=== PATIENT | female | born 1995 | race Caucasian/White ===

== ENCOUNTER 2017-07-19 09:43 | Inpatient (IN) | payer OTHER ==
[~2017-07-19] VITALS: Ht 160 cm; Wt 68.0 kg
[2017-08-07] MEDS ORDERED: PRENATAL 19 TA1 EACH PO (05:38)
[2017-08-09] MEDS ORDERED: PREPLUS CA-FE1 EACH PO (09:04)
== END 2017-08-09 12:01 | DRG 775 ==
LOC: LDR 08-04 13:00 → OB/GYN 08-07 20:22
PROC: 10D07Z6 Extraction of Products of Conception, Vacuum, Via Natural or Artificial Opening (ICD-10-PCS; principal; 2017-08-07)
PROC: 0W8NXZZ Division of Female Perineum, External Approach (ICD-10-PCS; 2017-08-07)
PROC: 4A1HXCZ Monitoring of Products of Conception, Cardiac Rate, External Approach (ICD-10-PCS; 2017-08-07)
PROC: 4A033R1 Measurement of Arterial Saturation, Peripheral, Percutaneous Approach (ICD-10-PCS; 2017-08-07)
DX: O48.0 Post-term pregnancy (principal); Z3A.40 40 weeks gestation of pregnancy; Z37.0 Single live birth

== ENCOUNTER 2017-07-28 18:57 | Outpatient (CLI) | payer OTHER | END 2017-07-29 09:39 | disposition home or self-care (01) | LOC: OBS/DEL 18:57 | DX: O76 Abnormality in fetal heart rate and rhythm complicating labor and delivery (principal); O47.1 False labor at or after 37 completed weeks of gestation; Z34.03 Encounter for supervision of normal first pregnancy, third trimester ==

== ENCOUNTER 2023-12-18 10:46 | Outpatient (CLI) | payer OTHER ==
[~2023-12-18 10:46] MED LIST: PRENATAL 19 TA1 EACH PO; PREPLUS CA-FE1 EACH PO
== END 2023-12-18 10:47 | disposition home or self-care (01) ==
LOC: PRENATAL 10:46
PROVIDERS: ATTEND Obstetrics & Gynecology Maternal & Fetal Medicine
DX: O36.80X0 Pregnancy with inconclusive fetal viability, not applicable or unspecified (principal); Z36.82 Encounter for antenatal screening for nuchal translucency; Z36.0 Encounter for antenatal screening for chromosomal anomalies

== ENCOUNTER 2024-01-30 08:20 | Outpatient (CLI) | payer OTHER | END 2024-01-30 08:21 | disposition home or self-care (01) | LOC: PRENATAL 08:20 | PROVIDERS: ATTEND Obstetrics & Gynecology Maternal & Fetal Medicine | DX: O35.3XX0 Maternal care for (suspected) damage to fetus from viral disease in mother, not applicable or unspecified (principal); O44.00 Complete placenta previa NOS or without hemorrhage, unspecified trimester; Z3A.19 19 weeks gestation of pregnancy ==

== ENCOUNTER → 2024-03-28 | Emergency (ER) | payer OTHER ==
[~2024-03-28] VITALS: Ht 160 cm; Wt 64.4 kg
[~2024-03-28] MED LIST changes: +AMOX1TAB5 PO; +PEPCID AC20 MG PO
[2024-03-28 14:38] LABS: URINE APPEARANCE Clear; URINE BILIRRUBIN Negative (NEGATIVE); URINE BLOOD Negative; URINE COLOR Yellow; URINE GLUCOSE Negative (NEGATIVE); URINE KETONE 15 (NEGATIVE); URINE LEUKOCYTE Small; URINE NITRATE Negative; URINE PROTEIN Negative (NEGATIVE); URINE UROBILINOGEN 0.2 E.U./dl
[2024-03-28 14:38] LABS: HEMATOCRIT 30.2 % (36.0-45.00); HEMOGLOBIN 10.5 g/dL (12.0-15.00); MEAN CELL VOLUME 94.9 fL (80.00-100.00); MEAN CORPUSCULAR HEMOGLOBIN 32.9 pg (27.00-32.0); MEAN CORPUSCULAR HGB CONC 34.6 g/dl (32.0-36.0); PLATELET COUNT 237 K/uL (150-450); RED BLOOD COUNT 3.18 M/uL (4.00-6.00); RED CELL DISTRIBUTION WIDTH 13.7 % (11.5-14.5)
[2024-03-28 14:42] LABS: URINE BACTERIA 2590.2 uL (0.0-1933); URINE EPITHELIAL CELLS 85.4 uL (0.0-38.8); URINE RBC 2.7 uL (0.0-20.8); URINE WBC 70.1 uL (0.0-23.2)
[2024-03-28 14:57] LABS: URINE CAST 0.61 uL (0.0-1.40)
== END | disposition home or self-care (01) ==
LOC: ER 12:12
PROVIDERS: General Practice
DX: R53.1 Weakness (principal); N39.0 Urinary tract infection, site not specified; R51.9 Headache, unspecified; Z20.822 Contact with and (suspected) exposure to COVID-19

== ENCOUNTER 2024-04-02 10:30 | Outpatient (CLI) | payer OTHER | END 2024-04-02 10:31 | disposition home or self-care (01) | LOC: PRENATAL 10:30 | PROVIDERS: ATTEND Obstetrics & Gynecology Maternal & Fetal Medicine | DX: O26.849 Uterine size-date discrepancy, unspecified trimester (principal); O28.3 Abnormal ultrasonic finding on antenatal screening of mother; Z3A.28 28 weeks gestation of pregnancy ==

== ENCOUNTER 2024-05-13 12:08 | Outpatient (CLI) | payer OTHER | END 2024-05-13 12:09 | disposition home or self-care (01) | LOC: PRENATAL 12:08 | PROVIDERS: ATTEND Obstetrics & Gynecology Maternal & Fetal Medicine | DX: O26.843 Uterine size-date discrepancy, third trimester (principal); O36.8130 Decreased fetal movements, third trimester, not applicable or unspecified; O40.3XX0 Polyhydramnios, third trimester, not applicable or unspecified; O28.3 Abnormal ultrasonic finding on antenatal screening of mother; Z3A.35 35 weeks gestation of pregnancy ==

== ENCOUNTER 2024-06-13 14:00 | Inpatient (IN) | payer OTHER ==
[~2024-06-13] VITALS: Ht 160 cm; Wt 72.1 kg
[2024-06-17] VITALS (11 sets, daily range): BP systolic 90–122; BP diastolic 59–78
[2024-06-17] MEDS ORDERED: DIALYVITE 800-1 EACH PO (01:55)
[2024-06-17] MEDS ORDERED: RINGERS SOLUTION,LACTATED 1,000 ML IV SCH (02:00)
[2024-06-17 02:45] LABS: PH,URINE 6.5 (5.0-8.0); URINE APPEARANCE Clear; URINE BILIRRUBIN Negative (NEGATIVE); URINE BLOOD Negative; URINE COLOR Yellow; URINE KETONE Trace (NEGATIVE); URINE LEUKOCYTE Negative; URINE NITRATE Negative; URINE PROTEIN Trace (NEGATIVE)
[2024-06-17 02:49] LABS: URINE EPITHELIAL CELLS 14.8 uL (0.0-38.8); URINE RBC 3.9 uL (0.0-20.8); URINE WBC 14.6 uL (0.0-23.2)
[2024-06-17 03:13] LABS: URINE CAST 0.14 uL (0.0-1.40); URINE GLUCOSE 250 MG/DL (NEGATIVE)
[2024-06-17 03:20] LABS: HEMATOCRIT 33.2 % (36.0-45.00); INR 0.96; MEAN CORPUSCULAR HGB CONC 34.2 g/dl (32.0-36.0); PARTIAL THROMBOPLASTIN TIME 27.1 SECONDS (22.0-34.0); PLATELET COUNT 211 K/uL (150-450); PROTHROMBIN TIME 10.5 SECONDS (9.0-11.5); RED BLOOD COUNT 3.42 M/uL (4.00-6.00); RED CELL DISTRIBUTION WIDTH 14.1 % (11.5-14.5)
[2024-06-17 03:24] LABS: ALBUMIN 2.9 gm/dL (3.4-5.0); BILIRUBIN TOTAL 0.31 mg/dL (0.3-1.2); CALCIUM 8.8 mg/dL (8.5-10.1); CREATININE SERUM 0.56 mg/dL (0.55-1.02); GFR 127.99; GLOBULINA 3.4 G/DL (2.4-3.5); POTASSIUM 3.47 mEq/L (3.5-5.1); TOTAL PROTEIN 6.3 gm/dL (6.4-8.2)
[2024-06-17 03:27] LABS: HEMOGLOBIN 11.3 g/dL (12.0-15.00)
[2024-06-17] MEDS ORDERED: AMPICILLIN SODIUM 2,000 MG VIAL ONE (06:13)
[2024-06-17] MEDS ORDERED: AMPICILLIN SODIUM 2,000 MG VIAL IV ONE (06:15)
[2024-06-17] MEDS ORDERED: OXYTOCIN 20 UNITS/500ML RL PIGGYBAG IV ONE (08:28)
[2024-06-17] MEDS ORDERED: CHLORHEXIDINE GLUCONATE 120 ML BOTTLE TOP ONE ×2 (08:28→14:15)
[2024-06-17] MEDS ORDERED: OXYTOCIN 20 UNITS/1000ML RL PIGGYBAG IV ONE (08:28)
[2024-06-17] MEDS ORDERED: ERYTHROMYCIN BASE OPHT 1GM EACH TUBE OP ONE ×2 (08:28→14:15)
[2024-06-17] MEDS ORDERED: LIDOCAINE HCL 1% 10ML VIAL ONE (08:29)
[2024-06-17] MEDS ORDERED: AMPICILLIN SODIUM 1,000 MG VIAL IV SCH (09:00)
[2024-06-17] MEDS ORDERED: OXYTOCIN 500 ML IV SCH (09:00)
[2024-06-17] MEDS ORDERED: METHYLERGONOVINE MALEATE 0.2 MG/ML AMPUL ONE (12:19)
[2024-06-17] MEDS ORDERED: CARBOPROST TROMETHAMINE 250 MCG/ML AMPUL IM ONE (12:19)
[2024-06-17] MEDS ORDERED: IBUprofen 400 MG TABLET PO PRN (13:30)
[2024-06-17] MEDS ORDERED: METHYLERGONOVINE MALEATE 0.2 MG/ML AMPUL IM STA (14:03)
[2024-06-17] MEDS ORDERED: CARBOPROST TROMETHAMINE 250 MCG/ML AMPUL IM STA (14:03)
[2024-06-17] MEDS ORDERED: LIDOCAINE HCL 1% 10ML VIAL IJ ONE (14:15)
[2024-06-17] MEDS ORDERED: OXYTOCIN 20 UNITS/1000ML RL PIGGYBAG IV SCH (14:15)
[2024-06-17 18:41] LABS: HEMATOCRIT 31.2 % (36.0-45.00); HEMOGLOBIN 10.9 g/dL (12.0-15.00); MEAN CELL VOLUME 95.3 fL (80.00-100.00); MEAN CORPUSCULAR HEMOGLOBIN 33.3 pg (27.00-32.0); MEAN CORPUSCULAR HGB CONC 34.9 g/dl (32.0-36.0); PLATELET COUNT 200 K/uL (150-450); RED BLOOD COUNT 3.27 M/uL (4.00-6.00)
[2024-06-18 08:05] VITALS: BP 99/68
[2024-06-18] MEDS ORDERED: PNV,CALCIUM 72/IRON/FOLIC ACID 1 TAB TABLET PO SCH (09:00)
[2024-06-18 17:29] VITALS: BP 102/65
[2024-06-18 20:48] VITALS: BP 107/70
[2024-06-19 03:35] VITALS: BP 100/70
[2024-06-19 08:13] VITALS: BP 112/58
== END 2024-06-19 12:21 | disposition home or self-care (01) | DRG 807 ==
LOC: OB/GYN 06-17 01:49 → LDR 06-17 01:49 → OB/GYN 06-17 11:08
PROVIDERS: Obstetrics & Gynecology; ADMIT Obstetrics & Gynecology; ATTEND Obstetrics & Gynecology
PROC: 10E0XZZ Delivery of Products of Conception, External Approach (ICD-10-PCS; principal; 2024-06-17)
PROC: 0KQM0ZZ Repair Perineum Muscle, Open Approach (ICD-10-PCS; 2024-06-17)
PROC: 4A1HXCZ Monitoring of Products of Conception, Cardiac Rate, External Approach (ICD-10-PCS; 2024-06-17)
DX: O70.1 Second degree perineal laceration during delivery (principal); Z37.0 Single live birth; Z3A.39 39 weeks gestation of pregnancy